=== PATIENT | male | born 1995 | race Caucasian/White ===

== ENCOUNTER 2016-08-30 19:07 | Emergency (ER) | payer MEDICAID, OTHER ==
[~2016-08-30] VITALS: Ht 170.2 cm; Wt 100.5 kg
[2016-08-30 19:10] VITALS: Ht 170.2 cm; Wt 100.5 kg
[2016-08-30] MEDS ORDERED: MUPI22OI2 TOP (19:40)
--- NOTE | 2016-08-30 19:45 | ERD ---
ER Documentation Chief Complaint Date/Time DATE: 08/30/16 TIME: 19:42 Chief Complaint right sided abd pain x 3 days HPI This is a 21-year-old male who presents with right-sided abdominal pain that he has had for 3 days. It is located to the mid abdomen and the pain is intermittent and only when he goes from sitting to standing. He denies any fever, nausea, vomiting, diarrhea, dysuria, hematuria, increased urinary frequency. He also notices some redness and drainage from his bellybutton the coincides with the starting of his pain. ROS All systems reviewed and are negative except as per history of present illness. Medications Home Meds Active Scripts Mupirocin* (Bactroban*) 2% -22 Gram Oint...g., 1 APPLIC TOP BID, #1 TUB SITE OF APPLICATION: Prov:SIERRA MUHAMMAD PA-C 08/30/16 Allergies Allergies: Coded Allergies: No Known Allergy (Unverified , 08/30/16) PMhx/Soc Medical and Surgical Hx: pt denies Medical Hx, pt denies Surgical Hx Hx Alcohol Use: Yes (SOCIAL) Hx Substance Use: Yes (MARIJUANA ) Hx Tobacco Use: Yes Smoking Status: Current every day smoker FmHx Family History: No diabetes Physical Exam Vitals Vital Signs Date Time Temp Pulse Resp B/P Pulse Ox O2 Delivery O2 Flow Rate FiO2 08/30/16 19:10 97.8 88 20 135/74 99 Physical Exam General: well developed, well nourished, alert, nontoxic, no distress Head: normocephalic, atraumatic Neck: Supple, nontender, no lymphadenopathy, no midline tenderness Respiratory: Clear to auscaultation bilaterally, speaks in full sentences, no use of accesory muscles or labored breathing, no rales, ronchi, or wheezing Cardiovascular: RRR, No murmurs GI: soft, non tender, non distended, negative murphys sign, negative mcburneys point tenderness, no cva tenderness bilaterally, no rebound or guarding Back: no midline tenderness, no step offs or bony abnormalities, sensation to light touch in tact Skin: The umbilicus has some irritation and mild erythema, no bleeding or drainage Procedures/MDM 21-year-old male presents with mild cellulitis around his umbilicus. His GI examination is benign. His vital signs are normal. He has no tenderness throughout his abdomen including over his appendix over his gallbladder. He has no testicular pain. Is no CVA tenderness. I doubt any acute emergent etiology for his abdominal pain. I do not believe he needs any imaging or laboratory workup. He was given a prescription for antibiotic ointment to apply to his wound. He was counseled on signs and symptoms of abdominal pain to be concerned about and he will return for any new or worsening symptoms. Recommended this patient follow up with her primary care doctor within 48 hours or return to the emergency room for any worsening of symptoms. However this time I do believe there is suitable for outpatient management. I answered all their questions and they agreed with the plan and were discharged home. Departure Diagnosis: Primary Impression: Cellulitis Condition: Stable Patient Instructions: Cellulitis Additional Instructions: Call your primary care doctor TOMORROW for an appointment during the next 1-2 days.See the doctor sooner or return here if your condition worsens before your appointment time. SIERRA MUHAMMAD PA-C Aug 30, 2016 19:45
== END 2016-08-30 19:52 | disposition home or self-care (01) ==
LOC: FTE 19:07
DX: L03.311 Cellulitis of abdominal wall (principal); F17.210 Nicotine dependence, cigarettes, uncomplicated
CPT/HCPCS: 99283